=== PATIENT | male | born 1950 | race Caucasian/White ===

== ENCOUNTER → 2018-04-15 | Outpatient (CLI) | payer MEDICARE ==
[~2018-04-15] MED LIST: HYDR12.556 PO; KET10 PO; LISI-374 PO; LOR5/325 PO; METF-411 PO; POTA20TA94 PO; POTA99TA6 PO; RIVA15TA PO; RIVA20TA PO
[2018-04-15 10:19] LABS: LDL CHOLESTEROL 109 mg/dl
== END ==
LOC: LAB 09:06
PROVIDERS: ATTEND Nurse Practitioner Family
DX: E11.9 Type 2 diabetes mellitus without complications (principal); E78.5 Hyperlipidemia, unspecified; I10 Essential (primary) hypertension
CPT/HCPCS: 36415; 82040; 82247; 82310; 82374; 82435; 82465; 82565; 82947; 83036; 83718; 84075; 84132; 84155; 84295; 84450; 84460; 84478; 84520

== ENCOUNTER → 2018-11-05 | Outpatient (CLI) | payer MEDICARE ==
[~2018-11-05] MED LIST changes: -METF-411 PO; +METF-450 PO
[2018-11-05 10:35] LABS: PLATELET COUNT, AUTOMATED 237 K/uL (150-450)
[2018-11-05 10:49] LABS: LDL CHOLESTEROL 77 mg/dl
== END ==
LOC: LAB 10:12
PROVIDERS: ATTEND Nurse Practitioner Family
DX: I10 Essential (primary) hypertension (principal); E11.9 Type 2 diabetes mellitus without complications; E78.5 Hyperlipidemia, unspecified
CPT/HCPCS: 36415; 82040; 82247; 82310; 82374; 82435; 82465; 82565; 82947; 83036; 83718; 84075; 84132; 84155; 84295; 84450; 84460; 84478; 84520; 85025

== ENCOUNTER → 2018-12-30 | Outpatient (CLI) | payer MEDICARE | LOC: LAB 09:24 | PROVIDERS: ATTEND Nurse Practitioner Family | DX: E87.6 Hypokalemia (principal) | CPT/HCPCS: 36415; 84132 ==

== ENCOUNTER → 2019-06-01 | Outpatient (CLI) | payer MEDICARE ==
[~2019-06-01] MED LIST changes: +REGADENOSON 0.4 MG/5 ML SYR ONE
--- NOTE | 2019-06-01 14:37 | RADIOLOGY IMAGING REPORT ---
FACILITY: [facility] - [place] PATIENT NAME: Elana Duenas : 1950 MR: [id number] V: [id number] EXAM DATE: ORDERING PHYSICIAN: ANIRUDH DECKER TECHNOLOGIST: Location: [facility] [place] Patient: Elana Duenas : 1950 Visit/Account:[id number] Date of Sevice: 06/01/2019 EXAMINATION: Single isotope SPECT imaging with regadenoson infusion and gated SPECT imaging. DATE OF EXAMINATION: 06/01/19. DATE OF INTERPRETATION: 06/01/19. REQUESTING PHYSICIAN: ANIRUDH DECKER. INDICATION: The patient is a 68-year-old male evaluated for chest pain. PROCEDURE: After informed consent the patient received an intravenous injection of 12.1 mCi of Tc-99 m sestamibi followed at an appropriate time interval by rest imaging. The patient then subsequently received an intravenous infusion of 0.4 mg of regadenoson per protocol without complication. Resting heart rate was 56 bpm with a peak heart rate of 75 bpm. Blood pressure at rest was 142 / 93 and fol lowing infusion was 158 / 84. Baseline EKG demonstrates sinus rhythm, right axis deviation. There w ere no EKG changes of ischemia following infusion. Symptoms were nonspecific. The patient then rece ived an intravenous injection of 32.3 mCi of Tc-99m sestamibi followed by stress imaging. RAW DATA: Examination of the summed raw data revealed a adequate quality study. Diaphragmatic atten uation present. MYOCARDIAL PERFUSION: The tomographic images demonstrate a moderate intensity, moderate-sized defect involving the basal, mid, apical inferior wall at rest which mildly improves but overall persists on stress imaging. This is most consistent with diaphragmatic attenuation based on raw imaging data an d evidence of normal inferior wall motion gated imaging.TID calculated at 1.39 although visually look s fairly normal. GATED IMAGES: The gated images demonstrate normal LVEF 59% with normal regional wall motion. IMPRESSION: 1. Nondiagnostic pharmacologic stress ECG. 2. Probably normal myocardial perfusion scan with no evidence of ischemia. Fixed inferior defect mo st consistent with attenuation artifact. 3. Normal LV systolic function; LVEF 59%. 4. Based on the results of this exam, the patient appears to be at low risk for 1 year future cardiov ascular events. Intermediate long-term risk based on need for pharmacologic stress agent as opposed to exercise. Report Dictated By: Sourav Osborn at 06/01/2019 2:24 PM Report E-Signed By: Sourav Osborn at 06/01/2019 2:31 PM WSN:[id number]
== END ==
LOC: NUC 00:20
PROVIDERS: ATTEND Internal Medicine
DX: I51.7 Cardiomegaly (principal)
CPT/HCPCS: 78452; 93017; 93306; A9500; J2785